=== PATIENT | male | born 1955 | race Caucasian/White ===

== ENCOUNTER 2021-04-26 08:30 | Outpatient (REF) | payer OTHER, SELFPAY ==
[2021-04-26 11:18] LABS: MANUAL DIFF FLAG NO
[2021-04-26 11:20] LABS: Basophils Absolute Auto 0.1 X10*3/uL (0.0-0.2); Basophils Percent Auto 0.6 % (0-2); Eosinophils Absolute Auto 0.2 X10*3/uL (0.0-0.4); Eosinophils Percent Auto 2.2 % (0-4); Hematocrit 43.7 % (42.0-52.0); Hemoglobin 14.5 g/dl (14.0-18.0); Imm Gran Abs Auto 0.07 X10*3/uL (0.00-0.03); Imm Gran Pct Auto 0.9 % (0.0-0.4); Lymphocytes Absolute Auto 1.5 X10*3/uL (1.2-4.9); Lymphocytes Percent Auto 19.1 % (20-40); Mean Corpuscular HGB Conc 33.2 g/dl (31.0-36.0); Mean Corpuscular Hemoglobin 28.2 pg (27.0-33.0); Mean Platelet Volume 11.5 fL (9.4-12.4); Monocytes Absolute Auto 0.5 X10*3/uL (0.1-1.2); Monocytes Percent Auto 6.2 % (2-11); Neutrophils Absolute Auto 5.6 x10*3/uL (2.0-8.3); Platelet Count 193 X10*3/uL (160-400); Red Blood Count 5.14 X10*6/uL (4.60-5.80); Red Cell Distribution Width 13.8 % (11.0-16.0); White Blood Count 7.9 X10*3/uL (4.8-10.8)
[2021-04-26 11:59] LABS: Alanine Aminotransferase 21 U/L (0-40); Albumin Level 3.8 g/dL (3.5-5.0); Alkaline Phosphatase 75 U/L (39-117); Anion Gap 11 (12-20); Aspartate Amino Transferase 15 U/L (5-37); Blood Urea Nitrogen 16 mg/dL (9-16); Calcium 9.1 mg/dL (8.4-10.2); Carbon Dioxide 30 mmol/L (22-29); Chloride 103 mmol/L (96-108); Cholesterol 167 mg/dL; Estimated Glomerular Filt Rate > 60; Glucose Fasting 151 mg/dL (60-99); HDL Cholesterol 39 mg/dL; LDL Cholesterol Calculated 95 mg/dl; Potassium 3.9 mmol/L (3.3-5.1); Sodium 140 mmol/L (135-145); Total Protein 6.6 g/dL (6.5-8.0); Triglycerides 165 mg/dL
[2021-04-26 12:18] LABS: Estimated Average Glucose 151 mg/dL; Hemoglobin A1c % 6.9 %
== END 2021-04-26 08:31 | disposition home or self-care (01) ==
LOC: HO.MANLDS 08:30
PROVIDERS: PCP Physician Assistant; Visit Provider Physician Assistant
DX: Z00.00 Encounter for general adult medical examination without abnormal findings (principal)
CPT/HCPCS: 36415; 80053; 80061; 83036; 85025

== ENCOUNTER 2021-07-12 07:37 | Outpatient (REF) | payer OTHER, SELFPAY ==
[2021-07-12 11:21] LABS: Estimated Average Glucose 140 mg/dL; Hemoglobin A1c % 6.5 %
[2021-07-12 12:09] LABS: Alanine Aminotransferase 20 U/L (0-40); Albumin Level 4.1 g/dL (3.5-5.0); Alkaline Phosphatase 94 U/L (39-117); Anion Gap 13 (12-20); Aspartate Amino Transferase 16 U/L (5-37); Bilirubin Total 0.9 mg/dL (0.0-1.0); Blood Urea Nitrogen 16 mg/dL (9-16); Calcium 9.4 mg/dL (8.4-10.2); Carbon Dioxide 30 mmol/L (22-29); Chloride 102 mmol/L (96-108); Estimated Glomerular Filt Rate > 60; Glucose Fasting 120 mg/dL (60-99); Potassium 3.7 mmol/L (3.3-5.1); Sodium 141 mmol/L (135-145)
== END 2021-07-12 07:38 | disposition home or self-care (01) ==
LOC: HO.MANLDS 07:37
PROVIDERS: PCP Physician Assistant; Visit Provider Physician Assistant
DX: R73.01 Impaired fasting glucose (principal)
CPT/HCPCS: 36415; 80053; 83036

== ENCOUNTER 2022-03-16 08:06 | Outpatient (REF) | payer OTHER, SELFPAY ==
[2022-03-16 11:58] LABS: Estimated Average Glucose 137 mg/dL; Hemoglobin A1c % 6.4 %
[2022-03-16 12:16] LABS: Cholesterol 133 mg/dL; HDL Cholesterol 38 mg/dL; LDL Cholesterol Calculated 75 mg/dl; Triglycerides 100 mg/dL
== END 2022-03-16 08:07 | disposition home or self-care (01) ==
LOC: HO.MANLDS 08:06
PROVIDERS: Visit Provider Physician Assistant
DX: E11.9 Type 2 diabetes mellitus without complications (principal); E78.01 Familial hypercholesterolemia
CPT/HCPCS: 36415; 80061; 83036

== ENCOUNTER 2022-05-23 10:56 | Outpatient (REF) | payer OTHER, SELFPAY ==
[2022-05-23 13:27] LABS: Estimated Average Glucose 146 mg/dL; Hemoglobin A1c % 6.7 %
== END 2022-05-23 10:57 | disposition home or self-care (01) ==
LOC: HO.MANLDS 10:56
PROVIDERS: Visit Provider Physician Assistant
DX: E11.9 Type 2 diabetes mellitus without complications (principal)
CPT/HCPCS: 36415; 83036

== ENCOUNTER 2022-12-04 08:18 | Outpatient (REF) | payer OTHER, SELFPAY ==
[2022-12-04 13:48] LABS: Cholesterol 157 mg/dL (<200); HDL Cholesterol 52 mg/dL (>40); LDL Cholesterol Calculated 70 mg/dL (<100); Triglycerides 179 mg/dL (<150)
[2022-12-04 13:54] LABS: Estimated Average Glucose 143 mg/dL; Hemoglobin A1c % 6.6 % (<6.0)
== END 2022-12-04 08:19 | disposition home or self-care (01) ==
LOC: HO.MANLDS 08:18
PROVIDERS: Visit Provider Physician Assistant
DX: M25.561 Pain in right knee (principal); E78.01 Familial hypercholesterolemia; Z13.89 Encounter for screening for other disorder
CPT/HCPCS: 36415; 80061; 83036; 84550

== ENCOUNTER 2024-06-08 10:12 | Outpatient (REF) | payer OTHER, SELFPAY ==
--- OUTSIDE RECORDS SUMMARY | 2024-06-08 11:56 | XMS_ITS | Continuity of Care Document ---
Author Organization [facility], [facility] Address [address] [place] [address] Assessment No assessment recorded. Plan of Treatment Reminders Order Date Submit Date Provider Last Modified By Organization Details Last Modified Time Details Appointments ANNUAL EXAM 2024 09:30A M PILI JOSE Not available Not available Not available Lab CMP, serum or plasma 2024 025 [facility], [address] [place] [address], [id number], 06/08/2024 10:01:12 hemoglobi n A1c, QN, blood 2024 025 [facility], [address] [place] [address], [id number], 06/08/2024 10:01:12 lipid panel, blood 2024 025 [facility], [address] [place] [address], [id number], 06/08/2024 10:01:12 CBC w/ auto diff 2024 025 [facility], [address] [place] [address], [id number], 06/08/2024 10:01:12 Referral sleep medicine referral 2024 025 [email or web address] Joesph Rosas MD, [address] [place] [address] , [facility], [place], [address], 06/08/2024 10:33:41 Procedures None recorded. Surgeries None recorded. Imaging None recorded. Medication Orders None recorded. Patient TargetsNo targets recorded. Patient Instructions Encounter Date Encounter Id Patient Instructions Last Modified By Organization Details Last Modified Time 06/08/2024 [id number] advance care planning: care instructions [email or web address] Not available 06/08/2024 09:52:51 Reason for Referral Sleep Medicine Referral for Sleep apnea needs updated at home sleep study for new CPAP supplies Referring Physician: Irma Ceja, Internal Medicine, Encounter Date: 06/08/2024 Problems Name Problem SNOMED Code Status Onset Date Resolution Date Notes Provider Name and Address Organization Details Recorded Time Barb amadoren dennise 30749883 Active 2017 Not Available [facility] 1 12:50:48 Diabetes mellitus 41210705 Completed 201711/08/2017 Mariana Saavedra NP, S [address] [place] [address], [phone], [facility] 8 10:03:18 Hyperlip idemia 45426873 Active 2017 Not Available [facility] 1 12:50:48 Osteoart hritis of knee 632451847 Active 2017 Right knee Not Available [facility] 1 12:50:48 Chronic back pain 470330104 Active 2017 Not Available [facility] 1 12:50:48 Sleep apnea 21488672 Active 2017 Not Available [facility] 1 12:50:48 Impaired glucose toleranc e 5255993 Completed 201711/08/2017 Mariana Saavedra NP, [address] [place], [address], [facility] 8 10:03:50 Type 2 diabetes mellitus 73220124 Completed 201702/07/2018 PILI JOSE [address] [place], [address], [facility] 3 09:12:15 Impaired fasting glycemia 734738106 Active 2017 Not Available [facility] 1 12:50:48 Non-rheu matic aortic sclerosi s 391849600 Active 2018 grade II diastoli c dysfunct ion Not Available [facility] 1 12:50:48 Left ventricu lar hypertro phy 38909038 Active 2019 Not Available [facility] 1 12:50:48 Pulmonar y hyperten dennise 66801676 Active 2019 gets yearsly echo per cardio Not Available [facility] 1 12:50:48 Type 2 diabetes mellitus 89841739 Active 2022 PILI OJSE [address] [place], [address], [facility] 3 09:12:15 Hearing loss 55205899 Active 2022 PILI JOSE [address] [place], [address], [facility] 3 09:17:26 Squamous cell carcinom a of skin 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 Active 2022 PILI JOSE [address] [place], [address], [facility] 3 09:20:54 Multiple benign melanocy tic nevi 040976144 Active 2022 PILI JOSE [address] [place], [address], [facility] 3 16:30:40 Pain of left knee joint 0125878365 82846 Active 2022 PILI JOSE [address] [place], [address], [facility] 3 08:44:23 Pain of right knee joint 2718977010 08075 Active 2022 PILI JOSE [address] [place], [address], [facility] 3 08:44:52 Dizzines s 115943235 Active 2023 PILI JOSE [address] [place], [address], [facility] 4 10:40:19 Chronic serous otitis media 85618621 Active 2023 PILI JOSE [address] [place] [address], [address], [facility] 4 10:42:32 Chronic serous otitis media 82749193 Active 2023 PILI JOSE [address] [place] [address], [address], [facility] 4 10:42:36 Skin lesion 15234006 Active 2023 PILI JOSE [address] [place] [address], [address], [facility] 4 18:35:25 Eczema 38242977 Active 2024 PILI JOSE [address] [place] [address], [address], [facility] 5 12:15:44 Problem Notes None recorded. Procedures Surgical History Date Name Laterality Status Provider Name and Address Organization Details Recorded Time 020 Corticosteroid Injection completed Mike Helton DO [address] [place] [address], [address], [facility] 10/21/2019 10:31:28 018 Colonoscopy completed Naye Deleon [facility] 01/14/2018 09:14:14 011 colonoscopy completed ZAK Chapa [address] [place] [address], [address], [facility] 09/16/2018 09:17:55 Tonsillectomy completed Mariana hirsch NP, S [address] [place] [address], [address], [facility] 11/08/2017 09:58:02 Unlisted px dentalvlr strux completed Mariana Saavedra NP, S [address] [facility], [place], [address], [facility] 11/08/2017 09:58:54 Imaging Results None recorded. Procedure Notes None recorded. Medical Equipment None Reported. Allergies No known drug allergies Medications Name Sig Start Date Stop Date Status Note LastModified by Organization Details LastModified Time celecoxib 200 mg capsule TAKE 1 CAPSULE BY MOUTH ONCE DAILY. MEDICATIO N TO BE STARTED AFTER SURGERY 06/08 completed Not Available Not Available Not Available amoxicillin 500 mg capsule TAKE 4 CAPSULES BY MOUTH 1 HOUR BEFORE DENTAL PROCEDURE 2024 active Not Available Not Available Not Avai lable prednisone 10 mg tablet 4 tabs x 2 days3 tabs x 2 days2 tabs x 2 days1 tabs x 2 days1/2 tab x 2 days 04/05 completed Not Available Not Available Not Available Stool Softener 100 mg capsule 05/23 completed Not Available Not Available Not Available azithromyci n 250 mg tablet TAKE 2 TABLETS BY MOUTH FOR 1 DAY THEN TAKE 1 TABLET BY MOUTH DAILY ON DAYS 2 -5 06/08 completed Not Available Not Available Not Available ibuprofen 800 mg tablet 05/23 completed Not Available Not Available Not Available valacyclovi r 1 gram tablet TAKE 1 TABLET BY MOUTH EVERY 8 HOURS FOR 7 DAYS 05/23 completed Not Available Not Available Not Available meloxicam 15 mg tablet TK 1 T PO QD WF OR MILK 06/08 completed Not Available Not Available Not Available ondansetron HCl 4 mg tablet 06/08 completed Not Available Not Available Not Available prednisone 20 mg tablet 40 mg x 7 days20 mg x 7 days 05/06 completed Not Available Not Available Not Available amlodipine 5 mg tablet TAKE 1 TABLET BY MOUTH ONCE A DAY 12/09 completed Not Available Not Available Not Available tramadol 50 mg tablet TAKE 1 TO 2 TABLETS BY MOUTH EVERY 6 HOURS NEEDED FOR MILD PAIN. DO NOT EXCEED 8 TABLETS (400MG) PER DAY. 06/08 completed Not Available Not Available Not Available amoxicillin 875 mg tablet TAKE 1 TABLET BY MOUTH TWICE DAILY UNTIL FINISHED 06/08 completed Not Available Not Available Not Available hydromorpho ne 2 mg tablet TAKE 1-2 TABLETS BY MOUTH EVERY 4 HOURS NEEDED FOR MILD PAIN 09/28 completed Not Available Not Available Not Available gentamicin 0.3 % eye drops INSTILL 1 DROP INTO AFFECTED EYE(S) BY OPHTHALMI C ROUTE EVERY 4 HOURS x 7 DAYS 09/29 completed Not Available Not Available Not Available aspirin 325 mg tablet,shaneka yed release 08/19 completed Not Available Not Available Not Available lorazepam 2 mg tablet 09/16 completed Not Available Not Available Not Available amlodipine 10 mg tablet TAKE 1 TABLET BY MOUTH EVERY DAY active Not Available Not Available No t Available pantoprazol e 40 mg tablet,shaneka yed release TAKE 1 TABLET BY MOUTH ONCE DAILY FOR AFTER SURGERY 06/08 completed Not Available Not Available Not Available simvastatin 20 mg tablet TAKE 1 TABLET BY MOUTH ONCE A DAY DIRECTED active Not Available Not Available No t Available gabapentin 300 mg capsule TAKE 1 CAPSULE BY MOUTH TWICE DAILY DIRECTED active Not Available Not Available No t Available hydrochloro thiazide 25 mg tablet TAKE 1 TABLET BY MOUTH ONCE A DAY active Not Available Not Available No t Available Baby Aspirin 81 mg chewable tablet Chew 1 tablet every day by oral route. active Not Available Not Available No t Available diclofenac sodium 50 mg tablet,shaneka yed release Take 1 tablet twice a day by oral route with meals for 30 days. 02/01 completed Not Available Not Available Not Available ibuprofen 600 mg tablet TAKE 1 TABLET BY MOUTH THREE TIMES A DAY WITH MEALS 06/08 completed Not Available Not Available Not Available scopolamine 1 mg over 3 days transdermal patch USE DIRECTED 07/10 completed Not Available Not Available Not Available methylpredn isolone 4 mg tablets in a dose pack FOLLOW PACKAGE DIRECTION S 06/08 completed Not Available Not Available Not Available lisinopril 40 mg tablet TAKE 1 TABLET BY MOUTH EVERY DAY active Not Available Not Available No t Available ondansetron 4 mg disintegrat ing tablet TAKE 1 TABLET BY MOUTH UNDER THE TONGUE EVERY 6 HOURS IF NEEDED FOR NAUSEA 08/19 completed Not Available Not Available Not Available metformin ER 500 mg tablet,exte nded release 24 hr TAKE 1 TABLET BY MOUTH TWO TIMES A DAY 02/07 completed Not Available Not Available Not Available betamethaso ne dipropionat e 0.05 % lotion APPLY FEW DROPS TOPICALLY TO THE AFFECTED AREA TWICE DAILY IN THE MORNING AND AT BEDTIME. RUB IN GENTLY AND COMPLETEL Y 06/08 completed Not Available Not Available Not Available naproxen 500 mg tablet TAKE 1 TABLET BY MOUTH TWO TIMES A DAY NEEDED FOR PAIN, MUST BE TAKEN WITH A MEAL 09/29 completed Not Available Not Available Not Available oxycodone 5 mg tablet TAKE 1 TO 2 TABLETS BY MOUTH EVERY 4 HOURS NEEDED FOR SEVERE PAIN 06/08 completed Not Available Not Available Not Available magnesium active Not Available Not Kristi ilable Not Available Vitamin C qd active Not Available Not Kristi ilable Not Available B Complex qd 11/27 completed Not Available Not Available Not Available Fish Oil active Not Available Not Avai lable Not Available Vitamin D qd active Not Available Not Kristi ilable Not Available CoQ10 active Not Available Not Availa ble Not Available multivitami n active Not Available Not Available Not Available GaviLyte-G 236 gram-22.74 gram-6.74 gram-5.86 gram oral solution 02/07 completed Not Available Not Available Not Available B12 qd 11/27 completed Not Available Not Available Not Available Vitals Date Recorded Body height Body mass index (BMI) Body weight Heart rate Oxygen saturation Oxygen saturation in Arterial blood by Pulse oximetry Systolic blood pressure Diastolic blood pressure Provider Name and Address Organization Details Last Updated DateTime 5 172.72 cm 40 kg/m2 664458. 51 g 60 /min 95 % 95 % 176 mm[Hg] 88 mm[Hg] Lizbeth Alejandra [facility] 5 09:29:51 Social History Question Answer Notes LastModified by Organizat ion Details LastModified Time Tobacco Smoking Status Never Smoker Not Available [facility] 01/05/2020 03:36:23 What Was The Date Of Your Most Recent Tobacco Screening? 06/08/2024 [email or web address] Information not available 06/08/2024 Do You Or Have You Ever Used Any Other Forms Of Tobacco Or Nicotine? No [email or web address] Information not available 05/07/2023 Sex: Unknown Functional Status None recorded. Mental Status None recorded. Family History Relationship Description Onset Age of this Age Resolved Age Notes LastModified by Organization Details LastModified Time Father Cirrhosis of liver 45 etoh [email or web address] Not available 2024 09:17:17 Father Alcohol abuse [email or web address] Not available 2017 09:56:28 Son Alcohol abuse [email or web address] Not available 2017 09:56:28 Mother Myocardial infarction 80 anxiet y, drug abuse [email or web address] Not available 11/08/2017 09:57:38 Daughter Bipolar disorder [email or web address] Not available 2024 09:17:17 Medical History Condition Response Coronary Artery Disease N Other Gout N Kidney Stones N Blood Diseases N Hyperthyroidism N Breast Cancer N Blood Transfusion N Hypothyroidism N Depression N COPD N Lung Disease N Defects or Inherited Disease N Difficulty Swallowing N Anesthesia Complications Y Anxiety Disorder Y Meniere's disease N Obesity Y Arthritis Y Mental Disorder N Cancer N Stroke N Bladder or Kidney Problems N High Cholesterol Y Liver Disease N Fibromyalgia N Kidney Disease N Allergies/Hayfever N Heart Problems N Hospitalizations N Thyroid Problems N GI Problems N Eating Disorder N Anemia N Constipation N Mental Illness N Diabetes Y Seizures/Epilepsy N Congestive Heart Failure (CHF) N Eczema N Diverticulitis N Abuse/Domestic Violence N Asthma N Reflux/GERD N Hepatitis N Pulmonary Embolism N Hypertension Y Thrombophilias N Immunizations Vaccine Type Date Status Note Provider Nam e and Address Organization Details Recorded Time zoster recombinant 1 completed Not Available [facility] 03/19/2021 14:27:12 zoster recombinant 1 completed Not Available [facility] 03/19/2021 14:27:12 Tdap 1 completed PILI JOSE [address] [place] [address], [address] 07/10/2022 09:12:34 COVID-19, mRNA, LNP-S, PF, 30 mcg/0.3 mL dose 1 completed Not Available [facility] 03/19/2021 14:27:12 COVID-19, mRNA, LNP-S, PF, 30 mcg/0.3 mL dose 1 completed Not Available [facility] 03/19/2021 14:27:12 Past Encounters Encounter ID Performer Location Encounter Start Date Encounter Closed Date Diagnosis/Indication Diagnosis SNOMED-CT Code Diagnosis ICD10 Code Diagnosis Note [id number] PILI JOSE [facility] [address] [facility],[place] [address] 06/08/2024 09:15:21 06/08/2024 10:33:41 Active or passive immunization 069616234 Z23 uptodateha d shinglleonorwi ll get me date Adult heal th examination 864201500 Z00.00 BP recheck 143/80 R check Sleep apnea 84220403 G47 .33 needs new supplies possibly? he is having issues with the machine with the air flow and vent Essential hypertension 62976820 I10 BP is stablewill continue to monitor Type 2 mario betes mellitus 40934676 E11.9 continue to monitor Health Concerns Section Related Observation LastModified by Organization Detai ls LastModified Time None Recorded Concern Status LastModified by Organization Details LastModified Time None Recorded Payers Encounter Date Sequence Insurance Name Policy Number Policy Mendieta Covered Member ID Mendieta Member ID Guarantor Name 06/08/2024 1 [facility] (POS) [id number] Frank Quevedo [id number] Frank Quevedo Notes Date Note Type Note Provider Name a nd Address Organization Details Recorded Time 5 text/html Annual WellnessReported bypatient.Diet and Nutrition:healthy diet; discussed vitamin and supplement use; discussed portion control; discussed maintaining calcium balance; discussed diet improvement; working on dietary changes cutting out sugar and salt trying to make more at home foods Fracture Risk:no history of fractures; no recent explained fracture; no sudden unexplained fractures; no previous musculoskeletal injuries Physical Activity:exercises on a regular basis; recent increase in physical activity; good physical condition Additional Lifestyle Factors:no tobacco use; drinks alcohol (mild-moderate) Depression Risk:never feels sad, empty, or tearful; no loss of interest in activities; no significant changes in weight; no sleep disturbances or insomnia; no agitation; no loss of energy; no feelings of worthlessness or guilt; no thoughts of suicide; no history of depression; no history of mood disorders Hearing:no loss of hearing Vision:no vision problems needs updated sleep study for his new CPAP which is 6 years old recheck BP is excellent no chest pain or sob needs levels recheck for his A1c PILI JOSE [address] [place], [address], [facility] 06/08/2024 10:08:50
--- OUTSIDE RECORDS SUMMARY | 2024-06-08 11:57 | XMS_ITS | Data Portability ---
Author Organization [facility] Home Service Address [address] [place] [address] Assessment Encounter Date Assessment Date Assessment LastModified by Organization Details LastModified Time 11/27/2022 11/27/2022 The patient denies little pleasure in activities they find enjoyable, feeling depressed, difficulties sleeping, feeling tired or having little energy, change in appetite, feeling guilty, overwhelmed or unmotivated. The patient denies suicidal ideation, thoughts of hurting themselves or others. Their mood is appropriate, they show good judgement and clear understanding of the conversation. They are orientated to time, place and person. They are not expressing any concerning thoughts or actions that would need further investigation and treatment for mental health. [email or web address] Not available 11/27/2022 14:59:36 Plan of Treatment Reminders Order Date Submit Date Provider Last Modified By Organization Details Last Modified Time Details Appointments ANNUAL EXAM 2024 09:30A M PILI JSOE Not available Not available Not available Lab CMP, serum or plasma 2024 025 [facility], [address] [place] [address], [address], 06/08/2024 10:01:12 hemoglobi n A1c, QN, blood 2024 025 [facility], [address] [place] [address], [address], 06/08/2024 10:01:12 lipid panel, blood 2024 025 [facility], [address] [place] [address] [place], [address], 06/08/2024 10:01:12 CBC w/ auto diff 2024 025 [facility], [address] [place] [address], [address], 06/08/2024 10:01:12 uric acid, serum or plasma 2022 023 [facility], [address] [place] [address], [address], 12/05/2022 12:55:48 Referral sleep medicine referral 2024 025 Joesph Rosas MD, [address] [place] [address] Dr, [facility], [place], [address], 06/08/2024 10:33:41 dermatolo gist referral - historica l pt 2022 023 [facility], [address] , [place], [address], 08/10/2022 08:22:57 otolaryng ologist referral 2022 023 [facility], [address] [place] [address], [address], 07/11/2022 08:34:10 Procedures None recorded. Surgeries None recorded. Imaging US, duplex, carotid artery 2023 024 [facility], [address] [place], [address], 09/09/2023 10:29:15 US, echocardi ogram - NOT REQUIRED Procedure codes: 33399Gpnd Reference #: [id number] olution: Completed on 4 at 10:22 am. Call ref #[id number]. 2023 024 [facility], [address] [place], [address], 09/09/2023 10:29:15 Medication Orders Medrol (Richie) 4 mg tablets in a dose pack 2023 025 [id number], [address] [place], [place], [id number], 06/08/2024 09:20:17 prednison e 20 mg tablet 2022 023 [email or web address] [facility]93230, [address] [place], [place], [id number], 05/07/2023 13:47:12 tramadol 50 mg tablet 2022 023 [email or web address] [facility] #[id number], [address] [place], [place], [id number], 06/08/2024 09:20:17 simvastat in 20 mg tablet 2022 023 [facility], [address] [place] [address], [address], 07/10/2022 09:33:20 gabapenti n 300 mg capsule 2022 023 [facility], [address] [place] [address], [address], 07/10/2022 16:15:49 lisinopri l 40 mg tablet 2022 023 [facility], [address] [place] [address], [address], 07/10/2022 09:33:10 amlodipin e 10 mg tablet 2022 023 [facility], [address] [place] [address], [address], 07/10/2022 09:33:13 hydrochlo rothiazid e 25 mg tablet 2022 023 [facility], [address] [place] [address], [address], 07/10/2022 09:34:02 Patient TargetsNo targets recorded. 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 Hearing loss bilateral hearing loss Referring Physician: Irma Ceja, Internal Medicine, Encounter Date: 07/10/2022 Family Life Educator Referral for S quamous cell carcinoma of skin possible new squamous cell carcinoma of the scalp historical pt Referring Physician: Irma Ceja, Internal Medicine, Encounter Date: 07/10/2022 Sleep Medicine Referral for Sleep apnea needs updated at home sleep study for new CPAP supplies Referring Physician: Irma Ceja Internal Medicine, Encounter Date: 06/08/2024 Results Created Date Observation Date Name Description Value Unit Range Abnormal Flag Note LastModifiedBy Organization Detail LastModifiedTime 09/12/19 23 04/26/2017 polys omnog saulo No observ ation record ed. rtba [facility] (Med Rec) [address] [place] [address], [address], 09/11/2022 15:30:11 Result Notes None recorded. Problems Name Problem SNOMED Code Status Onset Date Resolution Date Notes Provider Name and Address Organization Details Recorded Time Barb l hyperten dennise 13452801 Active 2017 Not Available [facility] 12:50:48 Diabetes mellitus 92436576 Completed 201711/08/2017 Mariana Saavedra, EDWAR, [address] [place], [address], [facility] 8 10:03:18 Hyperlip idemia 69409821 Active 2017 Not Available [facility] 12:50:48 Osteoart hritis of knee 769269669 Active 2017 Right knee Not Available [facility] 1 12:50:48 Chronic back pain 947790214 Active 2017 Not Available [facility] 1 12:50:48 Sleep apnea 70159811 Active 2017 Not Available [facility] 1 12:50:48 Impaired glucose toleranc e 8991391 Completed 201711/08/2017 Mariana Saavedra NP, S [address] [place], [address], [facility] 8 10:03:50 Type 2 diabetes mellitus 45039273 Completed 201702/07/2018 PILI JOSE [address] [place] [address], [address], [facility] 3 09:12:15 Impaired fasting glycemia 271231508 Active 2017 Not Available [facility] 1 12:50:48 Non-rheu matic aortic sclerosi s 289719635 Active 2018 grade II diastoli c dysfunct ion Not Available [facility] 1 12:50:48 Left ventricu lar hypertro phy 78554852 Active 2019 Not Available [facility] 1 12:50:48 Pulmonar y hyperten dennise 99162308 Active 2019 gets yearsly echo per cardio Not Available [facility] 1 12:50:48 Type 2 diabetes mellitus 24369426 Active 2022 PILI JOSE [address] [place], [address], [facility] 3 09:12:15 Hearing loss 31509826 Active 2022 PILI JOSE [address] [place] [address], [address], [facility] 3 09:17:26 Squamous cell carcinom a of skin 484692842 Active 2022 PILI JOSE [address] [place], [address], [facility] 3 09:20:54 Multiple benign melanocy tic nevi 322822352 Active 2022 PILI JOSE [address] [place], [address], [facility] 3 16:30:40 Pain of left knee joint 2415321404 91288 Active 2022 PILI JOSE [address] [place], [address], [facility] 3 08:44:23 Pain of right knee joint 1319617614 63610 Active 2022 PILI JOSE [address] [place], [address], [facility] 3 08:44:52 Dizzines s 071447622 Active 2023 PILI JOSE [address] [place], [address], [facility] 4 10:40:19 Chronic serous otitis media 02825084 Active 2023 PILI JOSE [address] [place] [address], [address], [facility] 4 10:42:32 Chronic serous otitis media 25381432 Active 2023 PILI JOSE [address] [place] [address], [address], [facility] 4 10:42:36 Skin lesion 40304141 Active 2023 PILI JOSE [address] [place], [address], [facility] 4 18:35:25 Eczema 86014338 Active 2024 PILI JOSE [address] [place], [address], [facility] 5 12:15:44 Problem Notes None recorded. Procedures Surgical History Date Name Laterality Status Provider Name and Address Organization Details Recorded Time 020 Corticosteroid Injection completed Mike Helton DO [address] [place], [address], [facility] 10/21/2019 10:31:28 018 Colonoscopy completed Naye Castanedapiper [facility] 01/14/2018 09:14:14 011 colonoscopy completed June ZAK France [address] [place], [address], [facility] 09/16/2018 09:17:55 Tonsillectomy completed Mariana hirsch NP, S [address] [place] [address], [address], [facility] 11/08/2017 09:58:02 Unlisted px dentalvlr strux completed Mariana Saavedra NP, S [address] [place] [address], [address], [facility] 11/08/2017 09:58:54 Imaging Results Imaging Date Name Status LastModified by Organiz ation Details LastModified Time 04/26/2017 polysomnogram completed [facility] (Med Rec) [address] [place] [address], [address], 09/11/2022 15:30:11 Procedure Notes None recorded. Medical Equipment None [...] Available Not Available Vitals Date Recorded Body weight Heart rate Oxygen saturation Oxygen saturation in Arterial blood by Pulse oximetry Systolic blood pressure Diastolic blood pressure Provider Name and Address Organization Details Last Updated DateTime 3 605012. 21 g 62 /min 99 % 99 % 142 mm[Hg] 80 mm[Hg] Michelle Corley [facility] 3 09:00:13 Date Recorded Heart rate Oxygen saturation Oxygen saturation in Arterial blood by Pulse oximetry Systolic blood pressure Diastolic blood pressure Provider Name and Address Organization Details Last Updated DateTime 3 83 /min 97 % 97 % 135 mm[Hg] 82 mm[Hg] Jyoti Gongora [facility] 3 14:42:14 Date Recorded Body height Heart rate Oxygen saturation Oxygen saturation in Arterial blood by Pulse oximetry Body mass index (BMI) Body weight Systolic blood pressure Diastolic blood pressure Provider Name and Address Organization Details Last Updated DateTime 4 172.72 cm 63 /min 96 % 96 % 39.5 kg/m2 523774. 02 g 138 mm[Hg] 80 mm[Hg] Chata Gallardo [facility] 4 13:43:58 Date Recorded Body height Body mass index (BMI) Body weight Heart rate Oxygen saturation Oxygen saturation in Arterial blood by Pulse oximetry Systolic blood pressure Diastolic blood pressure Provider Name and Address Organization Details Last Updated DateTime 4 172.72 cm 39.5 kg/m2 459270. 3 g 76 /min 98 % 98 % 132 mm[Hg] 80 mm[Hg] Phill Enriquez [facility] 4 10:28:59 Date Recorded Body height Body mass index (BMI) Body weight Heart rate Oxygen saturation Oxygen saturation in Arterial blood by Pulse oximetry Systolic blood pressure Diastolic blood pressure Provider Name and Address Organization Details Last Updated DateTime 5 172.72 cm 40 kg/m2 285753. 51 g 60 /min 95 % 95 % 176 mm[Hg] 88 mm[Hg] Lizbeth Alejandra [facility] 5 09:29:51 Social History Question Answer Notes LastModified by Organizat ion Details LastModified Time Tobacco Smoking Status Never Smoker Not Available [facility] 01/05/2020 03:36:23 What Was The Date Of Your Most Recent Tobacco Screening? 06/08/2024 [email or web address] Information not available 06/08/2024 Do You Or Have You Ever Used Any Other Forms Of Tobacco Or Nicotine? No Information not available 05/07/2023 Sex: Unknown Functional Status None recorded. Mental Status None recorded. Family History Relationship Description Onset Age of this Age Resolved Age Notes LastModified by Organization Details LastModified Time Father Cirrhosis of liver 45 [email or web address] Not available 2024 09:17:17 Father Alcohol abuse [email or web address] Not available 2017 09:56:28 Son Alcohol abuse [email or web address] Not available 2017 09:56:28 Mother Myocardial infarction 80 anxiet y, drug abuse [email or web address] Not available 11/08/2017 09:57:38 Daughter Bipolar disorder oty Not available 2024 09:17:17 Medical History Condition Response Coronary Artery Disease N Other Gout N Blood Diseases N Kidney Stones N Hyperthyroidism N Blood Transfusion N Breast Cancer N Lung Disease N Depression N COPD N Hypothyroidism N Defects or Inherited Disease N Difficulty [...] Congestive Heart Failure (CHF) N Eczema N Abuse/Domestic Violence N Diverticulitis N Asthma N Reflux/GERD N Hepatitis N Pulmonary Embolism N Hypertension Y Thrombophilias N Immunizations Vaccine Type Date Status Note Provider Nam e and Address Organization Details Recorded Time zoster recombinant 1 completed Not Available [facility] 03/19/2021 14:27:12 zoster recombinant 1 completed Not Available [facility] 03/19/2021 14:27:12 Tdap 1 completed PILI JOSE [address] [place] [address], [place], [address], [facility] 07/10/2022 09:12:34 COVID-19, mRNA, LNP-S, PF, 30 mcg/0.3 mL dose 1 completed Not Available [facility] 03/19/2021 14:27:12 COVID-19, mRNA, LNP-S, PF, 30 mcg/0.3 mL dose 1 completed Not Available [facility] 03/19/2021 14:27:12 Past Encounters Encounter ID Performer Location Encounter Start Date Encounter Closed Date Diagnosis/Indication Diagnosis SNOMED-CT Code Diagnosis ICD10 Code Diagnosis Note [id number] Mariana Saavedra NP, S [facility] [address] [facility], [place] [address] 10/04/2017 09:11:04 10/04/2017 14:25:08 Sleep apnea 51548037 G47.30 excellent compliance Hyperlipidemia 21763597 E78.2 reviewed labs Essential hypertension 09418374 I10 stable Diabetes mellitus 125081 09 E11.9 A1C 5.8 Screening procedure 2012 5006 Z13.9 [id number] Mariana Saavedra NP, S [facility] [address] [facility], [place] [address] 10/11/2017 09:39:42 10/11/2017 16:41:17 Pain in calf 988087089 M79.669 Pt to go to [facility] for U/S [id number] Mariana Saavedra NP, S [facility] [address], [place] [address] 11/08/2017 09:46:11 11/08/2017 12:22:32 Adult health examination 467689226 Z00.00 Active or passive immunization 200778095 Z23 Pt defers tetanus and shingles vaccines Type 2 mario betes mellitus 75901004 E11.9 Sleep apnea 74858423 G47 .30 excellent compliance Hyperlipidemia 29350838 E78.2 follow Essential hypertension 03711363 I10 stable [id number] Mariana Saavedra NP, S [facility] [address] [facility], [place] [address] 02/07/2018 08:55:11 02/07/2018 09:20:08 Impaired fasting glycemia 594674735 R73.01 to d/c metformin Sleep apnea 96353072 G47 .30 excellent compliance Hyperlipidemia 19084830 E78.2 follow Essential hypertension 87399178 I10 stable [id number] Mariana Saavedra NP, S [facility] [address] [facility],[place] [address] 05/20/2018 08:48:43 05/20/2018 09:29:19 Impaired fasting glycemia 150979830 R73.01 Sleep apnea 93159142 G47 .30 excellent compliance Hyperlipidemia 10681377 E78.2 follow, RR 4.1 Essential hypertension 97187561 I10 Ventricula r premature beats 73186187 I49.[address] Internal Medicine [address] [facility],[place] [address] 09/16/2018 09:01:22 09/16/2018 09:35:34 Impaired fasting glycemia 633600511 R73.01 a1c remains stable at 6.0 no meds for this Sleep apnea 36594558 G47 .30 excellent compliance Hyperlipidemia 74351305 E78.2 stable on simvastati n Essential hypertension 75212444 I10 stable Screening procedure 2012 5006 Z13.9 [id number] [facility] [place] [address] [facility] [place] [address] 01/19/2019 09:50:47 01/19/2019 10:26:43 Essential hypertension 40926818 I10 elevated today ? pain related will recheck at [facility] Osteoarthr itis of knee 988000447 M17.9 Sleep apnea 78397133 G47 .30 excellent compliance [id number] [facility] [place] Internal [facility] [address] [facility] [address],[place] [address] 03/18/2019 09:17:29 03/18/2019 10:26:38 Adult health examination 492689168 Z00.00 low risk for prostate ca - asx no fhx, agrees to have psa Active or passive immunization 102476800 Z23 refuses shingles vax, pneumonia vax, flu vax doesn't want tdap unless he is at risk for tetanus Essential hypertension 07154624 I10 elevated today ? pain related will recheck at cpe Hyperlipidemia 46131169 E78.2 stable on simvastati n Impaired f asting glycemia 431722053 R73.01 a1c remains stable at 6.0 no meds for this Sleep apnea 63161625 G47 .30 excellent compliance - helpful Body mass index 30+ - obesity 334841351 Z68.36 [id number] ZAK Chapa [facility] [address] [facility] [address] [address] 04/29/2019 14:34:20 04/29/2019 15:30:00 Essential hypertension 08430123 I10 elevated today ? pain related will recheck at [facility] Sleep apnea 30137592 G47 .30 excellent compliance - helpful Bacterial conjunctivitis 881211826 H10.9 [id number] PILI JOSE [facility] [address] [facility], [place] [address] 09/30/2019 08:44:24 09/30/2019 09:27:34 Essential hypertension 12950566 I10 BP is actually much better, doing well on medication Impaired f asting glycemia 422642802 R73.01 will recheck A1c Hyperlipidemia 56038199 E78.5 has labs slips to do from [facility] will recheck Patellofem oral syndrome of left knee 8516203390 673618 M22.2X2 will try a course of diclofenac to help break the inflammato ry cycle [id number] Mike Helton DO [facility] [address] [facility],[place] [address] 10/21/2019 09:59:56 10/21/2019 11:06:50 Osteoarthritis of knee 683374264 M17.9 mercy inj given well tolerated post procedure [place]io [place] [id number] PILI JOSE [facility] [address] [facility] [address] [address] 02/02/2020 08:52:24 02/02/2020 10:13:59 Fracture of femoral condyle 487059256 S72.412A seeing [facility] in 6 fu if not healed, will proceed with total knee replacemen t Fracture o f tibial plateau 938295525 S82.102A getting medication s from [facility], good on tramadol and ibu PRN using crutches [id number] PILI JOSE [facility] [address] [facility] [address] [address] 08/19/2020 10:48:43 08/19/2020 13:27:49 Herpes zoster 5191369 B02.9 will start on medication History of left total knee replacement 0599253304 979504 Z96.652 looked good todaytold him to elevate, ice and use compressio n stockings at work [id number] PILI JOSE [facility] [address] [facility] [address] [address] 09/28/2020 14:00:57 09/28/2020 14:50:11 Active or passive immunization 039712031 Z23 needs shingles vaccine Adult heal th examination 002351350 Z00.00 BP recheck is 133/80no interventi ons needed at this time has fu with the cardiologi st this month Essential hypertension 55255452 I10 BP is actually much better, doing well on medication [id number] PILI JOSE [facility] [address] [facility] [address] [address] 03/22/2021 09:09:32 03/24/2021 13:14:50 Post-herpetic neuritis 340887363 B02.29 will start on treatment for post herpetic neuralgia following shingles infection [id number] PILI JOSE [facility] [address] [facility] [address] [address] 05/23/2021 08:57:39 05/23/2021 12:23:53 Impaired fasting glycemia 435085435 R73.01 A1c is 6.9%ariana chaney on diet and exercisewi ll hold medication and check in 3 months was on metformin today Hyperlipidemia 94368479 E78.01 stable Essential hypertension 18575783 I10 BP is actually much better, doing well on medication tends to be high when he first get in Type 2 mario betes mellitus 63177286 E11.9 will hold medication [id number] PILI JOSE [facility] [address] [facility] [address] 07/10/2022 08:53:59 07/10/2022 11:27:04 Active or passive immunization 090166869 Z23 needs shingles vaccine Adult heal th examination 595840359 Z00.00 BP recheck is 135/80no interventi ons needed at this time has f/u with the cardiologi st this month Sleep apnea 74905192 G47 .33 needs new supplies possibly? he is having issues with the machine with the air flow and vent Type 2 mario betes mellitus 10271032 E11.9 will hold medication still in low 6.7%contin ue to monitor Hearing loss 89949595 H9 0.6 needs audio exam ( insists) Squamous c ell carcinoma of skin 599108390 C44.42 possibleag alma to return to dermatolog ist Essential hypertension 31545953 I10 BP is actually much better, doing well on medication tends to be high when he first get in Hyperlipidemia 84816990 E78.01 stable Renewal of prescription 765646473 Z76.0 needs refill [id number] PILI JOSE Internal [facility] [address] [facility],[place] [address] 11/27/2022 14:31:46 11/27/2022 15:39:31 Essential hypertension 72618005 I10 BP is stable Hyperlipidemia 59245349 E78.01 stable Pain of ri ght knee joint 0204864619 85318 M25.561 worseningh as f/u with [facility] on tart on prednisone Type 2 mario betes mellitus 65227554 E11.9 continue to monitor [id number] PILI JOSE Internal Medicine [address] [facility],[place] [address] 05/07/2023 13:38:47 05/07/2023 14:47:53 Essential hypertension 29834691 I10 BP is stablewill continue to monitor [id number] PILI JOSE Internal Medicine [address] [facility],[place] [address] 09/03/2023 10:17:09 09/04/2023 09:52:43 Depression screening 482076326 Z13.31 0 negative Type 2 mario betes mellitus 94983264 E11.9 continue to monitor Dizziness 446402857 R42 agreed to carotid and echo just to r/o cardiac etiology as a component, less likely though given lack of other symptoms suggestive of cardiac Chronic se hima otitis media 24724430 H65.23 start on medrol [id number] PILI JOSE [facility] [address] [facility] [address],[place] [address] 06/08/2024 09:15:21 06/08/2024 10:33:41 Active or passive immunization 240194747 Z23 uptodateha d shingleswi ll get me date Adult heal th examination 073380763 Z00.00 BP recheck 143/80 R check Sleep apnea 50749858 G47 .33 needs new supplies possibly? he is having issues with the machine with the air flow and vent Essential hypertension 31975258 I10 BP is stablewill continue to monitor Type 2 mario betes mellitus 26931631 E11.9 continue to monitor Health Concerns Section Related Observation LastModified by Organization Detai ls LastModified Time None Recorded Concern Status LastModified by Organization Details LastModified Time None Recorded Advance Directives Directive None Recorded Payers Encounter Date Sequence Insurance Name Policy Number Policy Mendieta Covered Member ID Mendieta Member ID Guarantor Name 07/10/2022 1 [facility] [facility] (POS) [id number] Frank Quevedo [id number] Frank Quevedo 11/27/2022 1 [facility] (POS) [id number] Frank Quevedo [id number] Frank Quevedo 05/07/2023 1 [facility] (POS) [id number] Frank Quevedo [id number] Frank Quevedo 09/03/2023 1 [facility] (POS) [id number] Frank Quevedo [id number] Frank Quevedo 06/08/2024 1 [facility] (POS) [id number] Frank Quevedo [id number] Frank Quevedo Notes Date Note Type Note Provider Name a nd Address Organization Details Recorded Time 3 text/html Annual WellnessReported bypatient.Diet and Nutrition:healthy diet; discussed vitamin and supplement use; discussed portion control; discussed maintaining calcium balance; discussed diet improvement Fracture Risk:no history of fractures; no recent explained fracture; no sudden unexplained fractures; no previous musculoskeletal injuries Physical Activity:exercises on a regular basis; recent increase in physical activity; good physical condition; discussed weightbearing activities; discussed exercise habits Additional Lifestyle Factors:no tobacco use; drinks alcohol (mild-moderate) Hearing:loss of hearing: in both ears Vision:no vision problems; does have a cataract forming (doesn't remember which one) white coat (stable with recheck)fluctuates around no matter where he goesrecent cardio exam was normal still works three days a weekwalks continuously all day needs hearing exam will send back for skin check for derm having a root canal tomorrow monitoring cataracts [address] [place], [address], [facility] 07/10/2022 09:34:43 3 text/html right knee pain [facility] referral put inwill set up with treatment plan and will also check uric acid levelsmost likely needs a steriod injectionMB out of office and currently waiting her for kenalfa (we are out) start prednisone and tramadol for discomfort [address] [place], [address], [facility] 11/27/2022 15:04:05 4 text/html BP f/u the patient reports that his BP was elevated at his specialist officethe patient may have had a false high reading due to the way the bp cuff tightened twice around his arm he denies sob, lightheaded-ness, dizziness, chest pain, vision change,headaches recent echo in 2020 was normal, no concerning findings BP is good at home and was good at other offices no other concerns todayalso is monitored by cardio continue medications as prescribed salt intake and amlodipine may be causing more of the swelling he is experiencing will let his orthopedic office know prior to his surgery [address] [place], [address], [facility] 05/07/2023 14:05:01 4 text/html c/o dizziness the patient had messaged me about concerns for the dizziness he just developednot positional, happened after getting out of his car, also developed it at of the blue while sitting the patient denies chest pain, no sob, no pre-syncope, no lightheadednessno issues with walking or moving no palpitations, ringing in the earthe patient has not had any changes in his health h/x or medication h/x no new medical problems, recently had his knee replaced (R) but nothing abnormal, no complications the patient's weight is the samethe patient meds are the same the patient is still very active recent eye exam was very normal, no signs of eye disease, glaucoma, does have some fluid build up in the ear with retraction, could be related to the dizziness due to pressure changes in the inner ear will also set him up from an echo and duplex [address] [place], [address], [facility] 09/03/2023 10:49:12 5 text/html Annual WellnessReported bypatient.Diet and Nutrition:healthy [...] recheck for his A1c [address] [place], [address], [facility] 06/08/2024 10:08:50
[2024-06-08 13:09] LABS: MANUAL DIFF FLAG NO
[2024-06-08 13:21] LABS: Basophils Absolute Auto 0.1 X10*3/uL (0.0-0.2); Eosinophils Absolute Auto 0.2 X10*3/uL (0.0-0.4); Eosinophils Percent Auto 2.8 % (0-4); Hematocrit 42.9 % (42.0-52.0); Hemoglobin 14.9 g/dl (14.0-18.0); Imm Gran Abs Auto 0.05 X10*3/uL (0.00-0.03); Imm Gran Pct Auto 0.7 % (0.0-0.4); Lymphocytes Absolute Auto 1.8 X10*3/uL (1.2-4.9); Lymphocytes Percent Auto 24.9 % (20-40); Mean Corpuscular HGB Conc 34.7 g/dl (31.0-36.0); Mean Corpuscular Hemoglobin 28.8 pg (27.0-33.0); Mean Corpuscular Volume 82.8 fL (80.0-98.0); Mean Platelet Volume 11.3 fL (9.4-12.4); Monocytes Absolute Auto 0.5 X10*3/uL (0.1-1.2); Monocytes Percent Auto 7.1 % (2-11); Neutrophils Absolute Auto 4.6 x10*3/uL (2.0-8.3); Neutrophils Percent Auto 63.5 % (45-73); Platelet Count 212 X10*3/uL (160-400); Red Blood Count 5.18 X10*6/uL (4.60-5.80); Red Cell Distribution Width 13.6 % (11.0-16.0); White Blood Count 7.2 X10*3/uL (4.8-10.8)
[2024-06-08 13:35] LABS: Estimated Average Glucose 148 mg/dL; Hemoglobin A1C 199.0108 umol/L; Hemoglobin A1c % 6.8 % (<6.0); Total Hemoglobin (HGBA1C) 3907.8822 umol/L
[2024-06-08 14:33] LABS: Alanine Aminotransferase 24 U/L (0-40); Albumin Level 4.1 g/dL (3.5-5.0); Alkaline Phosphatase 99 U/L (39-117); Anion Gap 10 (12-20); Aspartate Amino Transferase 26 U/L (5-37); Bilirubin Total 1.2 mg/dL (0.0-1.0); Blood Urea Nitrogen 13 mg/dL (9-16); Calcium 9.3 mg/dL (8.4-10.2); Carbon Dioxide 28 mmol/L (22-29); Chloride 106 mmol/L (96-108); Cholesterol 139 mg/dL (<200); Estimated Glomerular Filt Rate > 60; Glucose Random 126 mg/dL (60-115); HDL Cholesterol 39 mg/dL (>40); LDL Cholesterol Calculated 77 mg/dL (<100); Sodium 140 mmol/L (135-145); Total Protein 6.9 g/dL (6.5-8.0); Triglycerides 116 mg/dL (<150)
== END 2024-06-08 10:13 | disposition home or self-care (01) ==
LOC: HO.MANLDS 10:12
PROVIDERS: Visit Provider Physician Assistant
DX: E11.9 Type 2 diabetes mellitus without complications (principal)
CPT/HCPCS: 36415; 80053; 80061; 83036; 85025